=== PATIENT | male | born 1990 | race Two or more races ===

== ENCOUNTER 2018-05-29 20:13 | Emergency (ER) | payer MEDICAID ==
[~2018-05-29] VITALS: Ht 177.8 cm; Wt 72.6 kg
[2018-05-29] MEDS ORDERED: DOXYCYCLINE MO100 MG ORAL (20:49)
[2018-05-29] MEDS ORDERED: Lidocaine 1% MPF 10mg/ml 5ml INJ ONE (21:00)
[2018-05-29 21:24] VITALS: BP 115/75
--- NOTE | 2018-05-29 22:47 | Emergency Room Report ---
History of Present Illness General Chief Complaint: General Complaint Source: Patient Present Illness HPI Patient is a 28-year-old male presented after possible exposure to STD. Patient states he had currently been taking antibiotics. He had prior history of HIV. Patient states that he may been having increased rectal pain after sex. He denies any fever. He is concerned of possible sexual transmitted infection exposure. Allergies: Coded Allergies: No Known Allergies (Unverified , 05/29/18) Patient History Reviewed Nursing Documentation: PMH: Agreed; PSxH: Agreed Nursing Documentation-PMH Past Medical History: No History, Except For Review of Systems All Other Systems: negative except mentioned in HPI Physical Exam Vital Signs Date Time Temp Pulse Resp B/P (MAP) Pulse Ox O2 Delivery O2 Flow Rate FiO2 05/29/18 20:28 97.9 63 15 138/79 92 Room Air General Appearance: well appearing, no apparent distress, alert, GCS 15 Head: normocephalic, atraumatic ENT: hearing grossly normal, normal voice Neck: full range of motion, supple Respiratory: no respiratory distress, speaking full sentences Cardiovascular #1: normal inspection Musculoskeletal: no calf tenderness Neurologic: normal gait Psychiatric: mood/affect normal Skin: no rash Medical Decision Making Diagnostic Impression: Primary Impression: Possible exposure to STD ER Course Patient presented for possible exposure to STD. Differential diagnosis included was not limited to gonorrhea, chlamydia, syphilis, herpes among others. Patient has a benign exam and does not appear to require any further imaging or laboratory testing at this time. The patient will be empirically treated for the STD exposure. The patient was advised to follow-up for definitive testing with his infectious disease physicians Last Vital Signs Date Time Temp Pulse Resp B/P (MAP) Pulse Ox O2 Delivery O2 Flow Rate FiO2 05/29/18 21:24 98.0 80 16 115/75 99 Room Air Status: improved Disposition: HOME, SELF-CARE Condition: Stable Scripts Doxycycline Monohydrate* (DOXYCYCLINE MONOHYDRATE*) 100 Mg Capsule 100 MG ORAL Q12H, #14 CAP 0 Refills Prov: Theo Latham MD 05/29/18 Referrals: [facility],REFERRING (PCP) Patient Instructions: Sexually Transmitted Disease Additional Instructions: Follow up with your doctor for definitive testing. Return if any concerns Theo Latham MD May 29, 2018 22:47
== END 2018-05-29 21:30 | disposition home or self-care (01) ==
LOC: EMR 21:10
DX: Z20.2 Contact with and (suspected) exposure to infections with a predominantly sexual mode of transmission (principal)
CPT/HCPCS: 96372; 99284; J0696